=== PATIENT | female | born 1975 | race Caucasian/White ===

== ENCOUNTER 2017-02-24 11:19 | Inpatient (IN) | payer MEDICAID ==
[~2017-02-24] VITALS: Ht 162.6 cm; Wt 68.2 kg
[~2017-02-24 11:19] MED LIST: GLYB2.5T5 PO; NAPR-58 PO; NOCURR; OMEP20TA2 PO; PREN1TAB52 PO
[2017-02-24 11:47] LABS: GLUCOSE,POINT OF CARE 113 MG/DL (70-110)
[2017-02-24] MEDS ORDERED: SODIUM CHLORIDE 0.9% 1,000 ML IV ONE ×2 (12:00→14:45)
[2017-02-24] MEDS ORDERED: ONDANSETRON HCL 4 MG/2 ML VIAL IVP ONE (12:00)
[2017-02-24] MEDS ORDERED: MECLIZINE HCL 25 MG TABLET PO ONE (12:00)
[2017-02-24 12:25] LABS: BASOPHILS % (AUTO) 0.2 % (0.0-2.0); EOSINOPHILS % (AUTO) 2.8 % (1.0-6.0); HEMATOCRIT 29.9 % (36-46); HEMOGLOBIN 9.9 g/dL (12.0-16.0); LYMPHOCYTES # (AUTO) 1.5 K/uL (1.0-4.8); LYMPHOCYTES % (AUTO) 26.2 % (22.0-44.0); MEAN CORPUSCULAR HEMOGLOBIN 22.8 pg (26.0-34.0); MEAN CORPUSCULAR HGB CONC 32.9 G/dL (31.0-37.0); MEAN CORPUSCULAR VOLUME 69 fL (80-100); MONOCYTES # (AUTO) 0.3 K/uL (0.1-1.0); MONOCYTES % (AUTO) 5.4 % (2.0-9.0); NEUTROPHILS # (AUTO) 3.9 K/uL (1.8-7.7); NEUTROPHILS % (AUTO) 65.4 % (40.0-70.0); PLATELET COUNT (AUTO) 240 K/uL (150-450); RED BLOOD CELL COUNT(AUTO) 4.32 MIL/uL (4.00-5.20); WHITE BLOOD COUNT (AUTO) 5.9 K/uL (4.5-11.0)
[2017-02-24 12:42] LABS: ANION GAP 10 mmol/L (8-16); CALCIUM, TOTAL 9.1 mg/dL (8.8-10.5); CARBON DIOXIDE 26 mmol/L (22-29); CHLORIDE 103 mmol/L (98-107); CREATININE 0.68 mg/dL (0.60-1.30); GLOMERULAR FILTR. RATE CALC > 60 mL/min (>60); POTASSIUM 3.4 mmol/L (3.5-5.1); SODIUM SERUM 139 mmol/L (136-145); UREA NITROGEN, BLOOD 12 mg/dL (7-18)
[2017-02-24 12:49] LABS: RBC MORPHOLOGY COMMENT ABNORMAL RBC MORPH
[2017-02-24 12:57] LABS: ALANINE AMINOTRANSFERASE 26 U/L (12-78); ALBUMIN 4.3 g/dL (3.4-5.0); ASPARTATE AMINOTRANSFERASE 17 U/L (15-37); BILIRUBIN,TOTAL 0.4 mg/dL (0.1-1.0); TOTAL PROTEIN, SERUM 8.1 g/dL (6.4-8.2)
[2017-02-24] MEDS ORDERED: ACETAMINOPHEN 325 MG TABLET PO PRN (14:45)
[2017-02-24] MEDS ORDERED: GADOBUTROL 1 MMOL/ML 10 ML VIAL IVP ONE (14:45)
[2017-02-24] MEDS ORDERED: ONDANSETRON HCL 4 MG/2 ML VIAL IVP PRN (14:45)
[2017-02-24 16:16] VITALS: BP 120/72
[2017-02-24] MEDS ORDERED: POTASSIUM CHLORIDE 20 MEQ ER TABLET PO ONE (18:30)
[2017-02-24 19:32] VITALS: BP 113/71
[2017-02-24 23:44] VITALS: BP 151/86
[2017-02-24 23:50] VITALS: BP 96/61
[2017-02-25] MEDS ORDERED: ONDANSETRON HCL 4 MG/2 ML VIAL IVP PRN
[2017-02-25] MEDS ORDERED: HYDROCODONE/ACETAMINOPHEN 5-325 MG TABLET PO PRN
[2017-02-25] MEDS ORDERED: ALBUTEROL SULFATE 2.5 MG/0.5 ML NEB SOLUTION NEB PRN
[2017-02-25] MEDS ORDERED: MAGNESIUM HYDROXIDE SUSPENSION 30 ML UDCUP PO PRN
[2017-02-25] MEDS ORDERED: ACETAMINOPHEN 325 MG TABLET PO PRN
[2017-02-25] MEDS ORDERED: ZOLPIDEM TARTRATE 5 MG TABLET PO PRN
[2017-02-25] MEDS ORDERED: IPRATROPIUM BROMIDE 0.5 MG/2.5 ML NEB SOLUTION NEB PRN
[2017-02-25] MEDS ORDERED: MORPHINE SULFATE 4 MG/ML SYRINGE IVP PRN
[2017-02-25] MEDS ORDERED: BISACODYL 10 MG RECTAL RECTAL SUPPOSITORY PR PRN
[2017-02-25] MEDS: HEPARIN SODIUM,PORCINE 5,000 UNITS/ML VIAL SQ SCH ×2 (01:13→08:32)
[2017-02-25] MEDS: MECLIZINE HCL 25 MG TABLET PO SCH ×3 (01:13→11:49)
[2017-02-25 05:04] VITALS: BP 100/63
[2017-02-25 07:13] VITALS: BP 105/65
[2017-02-25] MEDS ORDERED: DOCUSATE SODIUM 100 MG CAPSULE PO SCH (09:00)
[2017-02-25] MEDS ORDERED: PANTOPRAZOLE SODIUM 40 MG/VIAL IVP SCH (09:00)
[2017-02-25 11:13] VITALS: BP 110/68
[2017-02-25] MEDS ORDERED: MECL-129 PO (14:24)
== END 2017-02-25 15:00 | disposition home or self-care (01) | DRG 111 ==
LOC: EMS 11:23 → 6N 15:17
PROVIDERS: ADMIT Hospitalist; ATTEND Hospitalist
DX: H81.10 Benign paroxysmal vertigo, unspecified ear (principal); E87.6 Hypokalemia; D64.9 Anemia, unspecified
CPT/HCPCS: 70450; 70553; 82962; 84132; 96361; 96374; 99285; A9585; C9113; J1644; J2405; J7030

== ENCOUNTER 2021-11-23 20:17 | Emergency (ER) | payer MEDICAID ==
[~2021-11-23] VITALS: Ht 157.5 cm; Wt 73.2 kg
[~2021-11-23 20:17] MED LIST changes: -GLYB2.5T5 PO; +MECL-129 PO; -NAPR-58 PO; -NOCURR; -OMEP20TA2 PO; -PREN1TAB52 PO
[2021-11-23] MEDS ORDERED: ASCO500T20 PO (20:34)
[2021-11-23] MEDS ORDERED: FERR325T23 PO (20:34)
[2021-11-23] MEDS: KETOROLAC TROMETHAMINE 30 MG/ML VIAL IM ONE (22:17)
[2021-11-24 00:22] VITALS: BP 108/71
[2021-11-24] MEDS ORDERED: IBUP-2070 PO (00:33)
== END 2021-11-24 00:50 | disposition home or self-care (01) ==
LOC: EMS 20:24
DX: M25.562 Pain in left knee (principal); Z87.39 Personal history of other diseases of the musculoskeletal system and connective tissue
CPT/HCPCS: 73562; 96372; 99283; J1885; 29530

== ENCOUNTER 2022-06-05 21:07 | Emergency (ER) | payer MEDICAID ==
[~2022-06-05] VITALS: Ht 165.1 cm; Wt 80.0 kg
[~2022-06-05 21:07] MED LIST changes: +ASCO500T20 PO; +FERR325T23 PO; +IBUP-2070 PO; -MECL-129 PO
[2022-06-05 21:42] LABS: BASOPHILS % (AUTO) 0.5 % (0.0-2.0); EOSINOPHILS % (AUTO) 2.3 % (1.0-6.0); HEMATOCRIT 27.9 % (36-46); LYMPHOCYTES # (AUTO) 2.7 K/uL (1.0-4.8); LYMPHOCYTES % (AUTO) 28.3 % (22.0-44.0); MEAN CORPUSCULAR HEMOGLOBIN 23.7 pg (26.0-34.0); MEAN CORPUSCULAR HGB CONC 32.1 G/dL (31.0-37.0); MEAN CORPUSCULAR VOLUME 74 fL (80-100); MONOCYTES # (AUTO) 0.7 K/uL (0.1-1.0); MONOCYTES % (AUTO) 7.1 % (2.0-9.0); NEUTROPHILS # (AUTO) 5.9 K/uL (1.8-7.7); NEUTROPHILS % (AUTO) 61.8 % (40.0-70.0); PLATELET COUNT (AUTO) 252 K/uL (150-450); RED BLOOD CELL COUNT(AUTO) 3.79 MIL/uL (4.00-5.20); RED CELL DISTRIBUTION WIDTH 16.8 % (11.5-14.5)
[2022-06-05 21:57] LABS: CALCIUM, TOTAL 8.7 mg/dL (8.8-10.5); CREATININE 1.02 mg/dL (0.60-1.30); POTASSIUM 3.3 mmol/L (3.5-5.1)
[2022-06-05 22:08] LABS: ALBUMIN 3.8 g/dL (3.4-5.0); BILIRUBIN,TOTAL 0.4 mg/dL (0.1-1.0); TOTAL PROTEIN, SERUM 7.4 g/dL (6.4-8.2)
[2022-06-05 22:14] LABS: APPEARANCE,URINE HAZY (CLEAR); BILIRUBIN,URINE NEGATIVE (NEGATIVE); GLUCOSE, URINE (UA) NEGATIVE (NEGATIVE); KETONES,URINE TRACE mg/dL (NEGATIVE); LEUKOCYTE ESTERASE ,URINE MODERATE (NEGATIVE); NITRATE,URINE NEGATIVE (NEGATIVE); OCCULT BLOOD,URINE NEGATIVE (NEGATIVE); PH,URINE 5.5 (5.0-8.0); PROTEIN,URINE 30-70 mg/dL (NEGATIVE); SPECIFIC GRAVITIY, URINE 1.033 (1.003-1.030)
[2022-06-05] MEDS ORDERED: KETOROLAC TROMETHAMINE 30 MG/ML VIAL IVP ONE (22:15)
[2022-06-05] MEDS ORDERED: ONDANSETRON HCL 4 MG/2 ML VIAL IVP ONE (22:15)
[2022-06-05] MEDS ORDERED: SODIUM CHLORIDE 0.9% 1,000 ML IV ONE (22:15)
[2022-06-05 22:50] LABS: SQUAMOUS EPITHELIAL CELL,UR Many /LPF (None Seen)
[2022-06-05 22:51] LABS: BACTERIA,URINE Rare /HPF (None Seen); RBC,URINE None Seen /HPF (0-2)
[2022-06-05] MEDS ORDERED: ACET-66 PO (23:40)
[2022-06-05] MEDS ORDERED: ONDA-104 PO (23:40)
[2022-06-05] MEDS ORDERED: MAG30ORA11 PO (23:40)
[2022-06-05] MEDS ORDERED: CEPH-556 PO (23:41)
[2022-06-06 00:16] VITALS: BP 127/69
== END 2022-06-06 00:23 | disposition home or self-care (01) ==
LOC: EMS 21:07
DX: R10.30 Lower abdominal pain, unspecified (principal); D50.9 Iron deficiency anemia, unspecified; Z87.39 Personal history of other diseases of the musculoskeletal system and connective tissue
CPT/HCPCS: 99284; 74176; 96374; 96361; 96375; 80053; 81001; 83690; 84702; 85025; 36415; 87086; 81025; J1885; J2405; J7030

== ENCOUNTER 2023-08-14 16:17 | Emergency (ER) | payer MEDICAID ==
[~2023-08-14] VITALS: Ht 157.5 cm; Wt 79.5 kg
[~2023-08-14 16:17] MED LIST changes: +ACET-66 PO; +CEPH-556 PO; +IBUP-1492 PO; -IBUP-2070 PO; +MAG30ORA11 PO; +ONDA-104 PO
[2023-08-14 16:31] VITALS: TEMP 97.9
[2023-08-14 17:26] LABS: BASOPHILS % (AUTO) 0.8 % (0.0-2.0); HEMATOCRIT 35.2 % (36-46); HEMOGLOBIN 11.6 g/dL (12.0-16.0); LYMPHOCYTES # (AUTO) 2.4 K/uL (1.0-4.8); MEAN CORPUSCULAR HEMOGLOBIN 25.1 pg (26.0-34.0); MEAN CORPUSCULAR HGB CONC 32.9 G/dL (31.0-37.0); MEAN CORPUSCULAR VOLUME 76 fL (80-100); MONOCYTES # (AUTO) 0.7 K/uL (0.1-1.0); MONOCYTES % (AUTO) 9.7 % (2.0-9.0); NEUTROPHILS # (AUTO) 3.9 K/uL (1.8-7.7); NEUTROPHILS % (AUTO) 52.5 % (40.0-70.0); PLATELET COUNT (AUTO) 233 K/uL (150-450); RED BLOOD CELL COUNT(AUTO) 4.61 MIL/uL (4.00-5.20); RED CELL DISTRIBUTION WIDTH 24.6 % (11.5-14.5); WHITE BLOOD COUNT (AUTO) 7.4 K/uL (4.5-11.0)
[2023-08-14 17:32] LABS: ANION GAP 7 mmol/L (8-16); CALCIUM, TOTAL 9.3 mg/dL (8.8-10.5); CARBON DIOXIDE 25 mmol/L (22-29); CHLORIDE 105 mmol/L (98-107); CREATININE 0.58 mg/dL (0.60-1.30); GLOMERULAR FILTR. RATE CALC > 60 mL/min (>60); GLUCOSE,RANDOM 99 mg/dL (70-110); POTASSIUM 3.7 mmol/L (3.5-5.1); SODIUM SERUM 137 mmol/L (136-145); UREA NITROGEN, BLOOD 13 mg/dL (7-18)
[2023-08-14 17:41] LABS: ALANINE AMINOTRANSFERASE 213 U/L (12-78); ALKALINE PHOSPHATASE 99 U/L (46-116); ASPARTATE AMINOTRANSFERASE 137 U/L (15-37); BILIRUBIN,TOTAL 0.3 mg/dL (0.1-1.0); TOTAL PROTEIN, SERUM 8.2 g/dL (6.4-8.2)
[2023-08-14 17:50] LABS: TROPONIN I-HIGH SENSITIVITY 5 ng/L (<51)
[2023-08-14] MEDS ORDERED: KETOROLAC TROMETHAMINE 60 MG/2 ML VIAL IM ONE (18:00)
[2023-08-14] MEDS ORDERED: MECLIZINE HCL 25 MG TABLET PO ONE (18:00)
[2023-08-14] MEDS ORDERED: ACETAMINOPHEN 500 MG TABLET PO ONE (18:00)
[2023-08-14 18:19] LABS: RBC MORPHOLOGY COMMENT ABNORMAL RBC MORPH
[2023-08-14 18:39] VITALS: BP 139/68; PULSE 88; RESP 16
[2023-08-14] MEDS ORDERED: MECL-134 PO (19:08)
[2023-08-14] MEDS ORDERED: ACET-66 PO (19:08)
== END 2023-08-14 19:20 | disposition home or self-care (01) ==
LOC: EMS 16:19
DX: R51.9 Headache, unspecified (principal); R42 Dizziness and giddiness
CPT/HCPCS: 99285; 70450; 80053; 82962; 84484; 84703; 85025; 36415; 93005; 96372; J1885